=== PATIENT | male | born 2000 | race African-American/Black ===

== ENCOUNTER 2019-05-10 20:17 | Emergency (ER) | payer OTHER ==
[2019-05-10 22:42] VITALS: BP 124/77
[2019-05-10 23:00] LABS: Rapid Strep Molecular Negative (Negative)
== END 2019-05-11 | disposition left against medical advice (07) ==
LOC: ED 20:17
DX: Z53.21 Procedure and treatment not carried out due to patient leaving prior to being seen by health care provider (principal)
CPT/HCPCS: 87651; 99282